=== PATIENT | male | born 1955 | race Caucasian/White ===

== ENCOUNTER 2025-09-17 04:53 | Inpatient (IN) | payer OTHER, SELFPAY ==
--- NOTE | 2025-08-30 12:19 | CM ---
Chart reviewed. Met with the patient in PAT. Reviewed preoperative and postoperative instructions and restrictions, along with showering guidelines. Gave patient 2 soaps. Patient is agreeable to a home visit by CT Transitional RN. Patient
is independent of ADLS, lives with his , daughter and BETTE in a 2 STH, 3 DONNA, 0 DME. Plan is for the patient to return home. CM to follow
[2025-08-30 13:00] LABS: Hematocrit 44.4 % (39.0-52.0); Hemoglobin 15.4 g/dL (13.0-18.0); Mean Corp Hgb Conc. 34.7 g/dL (33.0-37.0); Mean Corpuscular Volume 89.3 fL (80.0-94.0); Nucleated Red Blood Cells % 0 % (-); Platelet Count 246 10^3/uL (130-400); Red Cell Dist. Width 12.4 % (11.5-14.5)
[2025-08-30 13:14] LABS: INR 1.05; PT 14.0 Sec (11.4-14.6)
[2025-08-30 13:20] LABS: Urine Character Clear (Clear)
[2025-08-30 13:35] LABS: ALT (SGPT) 19 U/L (0-50); AST (SGOT) 16 U/L (17-59); Albumin 4.7 g/dl (3.5-5.0); Alkaline Phosphatase 47 U/L (38-126); Blood Urea Nitrogen 15 mg/dl (9-20); Calcium 9.7 mg/dl (8.4-10.2); Carbon Dioxide 27 mmol/L (22-30); Chloride 106 mmol/L (98-107); Estimated Creatinine Clearance 68 ml/min; Glucose 83 mg/dl (70-99); Potassium 4.1 mmol/L (3.5-5.1); Sodium 137 mmol/L (135-145); Total Protein 7.7 g/dl (6.3-8.2); eGFR > 60.00
[2025-08-30 14:15] LABS: Glycohemoglobin (HgbA1c) 5.1 % (4.0-5.9)
[2025-09-17] VITALS (18 sets, daily range): BP systolic 96–162; BP diastolic 64–96; BMI 29.8
[2025-09-17] MEDS: BACTROBAN 2% OINTMENT 1 APPLIC NASAL ×2 (05:20→20:38)
[2025-09-17] MEDS: LOPRESSOR 25 MG PO (05:20)
[2025-09-17] MEDS: PROTONIX 40 MG PO (05:21)
[2025-09-17] MEDS: MAGNESIUM OXIDE 400 MG PO (05:21)
--- NOTE | 2025-09-17 05:38 | PTCARENOTE ---
Pt admitted into 2266. Pt confirmed NPO since midnight and 2 CHG showers completed at home. Admission questions and med rec complete. VS and ABO obtained. Pt clipped and washed with CHG wipes. Pre-op medications given. Awaiting CVOR.
--- NOTE | 2025-09-17 06:25 | W.CVOR.SURPR ---
CVOR Surgeon Immed Pre Op
-
I have examined this patient prior to performance of the scheduled procedure.
The patient's condition is unchanged from the time of the dictated/written History and
Physical and the patient is able to undergo the scheduled procedure.
HP MV repair +/- LAAE
[2025-09-17 07:14] LABS: ACT+ - POC 123 Seconds (82-134)
[2025-09-17 07:54] LABS: Urine Character Clear (Clear)
--- NOTE | 2025-09-17 08:07 | CM ---
Reviewed chart. Mr. Ann is in the operating room today. Prior to admission he resides with his spouse, daughter and son-in-law in a two story home with three steps to enter. Prior to admission he was independent with ambulation and adls. He
does not have any DME in the home. Medical work-up in progress. The discharge plan is to return home with his spouse, daughter and son-in-law and a home visit by the Transitional Care Nurse when medically stable.
[2025-09-17 08:18] LABS: Urine Urothelial Cell 0-2 /LPF (FEW)
[2025-09-17 08:22] LABS: Urine White Cell 0-2 /HPF (0-5)
[2025-09-17 08:48] LABS: ACT+ - POC 495 Seconds (82-134)
[2025-09-17 09:09] LABS: B.E. - POC -2.4 mmol/L; Glucose - POC 97 mg/dl (70-99); HCO3 - POC 23 mmol/L (21-28); Hematocrit - POC 34 % PCV (42-52); Hemodilution- POC No; Hemoglobin Calculated - POC 11.5; Ionized Calcium - POC 1.19 mmol/L (1.15-1.33); Lactate - POC 0.43 mmol/L (0.36-0.75); O2 Saturation %Calculated-POC 99.9 % (94-98); PCO2 - POC 39 mmHg (35-48); PO2 - POC 278 mmHg (83-108); Potassium - POC 3.4 mmol/L (3.5-5.1); Sodium - POC 141 mmol/L (136-145); Specimen Type - POC Arterial; pH - POC 7.37 (7.35-7.45)
[2025-09-17 09:21] LABS: ACT+ - POC 509 Seconds (82-134)
[2025-09-17 09:43] LABS: B.E. - POC -0.8 mmol/L; Glucose - POC 169 mg/dl (70-99); HCO3 - POC 24 mmol/L (21-28); Hematocrit - POC 34 % PCV (42-52); Hemodilution- POC Yes; Hemoglobin Calculated - POC 11.7; Ionized Calcium - POC 0.98 mmol/L (1.15-1.33); Lactate - POC 0.62 mmol/L (0.36-0.75); O2 Saturation %Calculated-POC 99.8 % (94-98); PCO2 - POC 42 mmHg (35-48); PO2 - POC 223 mmHg (83-108); Potassium - POC 4.9 mmol/L (3.5-5.1); Sodium - POC 139 mmol/L (136-145); Specimen Type - POC Arterial; pH - POC 7.38 (7.35-7.45)
[2025-09-17 09:52] LABS: ACT+ - POC 430 Seconds (82-134)
[2025-09-17 10:20] LABS: B.E. - POC 0.5 mmol/L; Glucose - POC 206 mg/dl (70-99); HCO3 - POC 26 mmol/L (21-28); Hematocrit - POC 35 % PCV (42-52); Hemodilution- POC Yes; Hemoglobin Calculated - POC 11.9; Ionized Calcium - POC 1.12 mmol/L (1.15-1.33); Lactate - POC 0.54 mmol/L (0.36-0.75); O2 Saturation %Calculated-POC 100.0 % (94-98); PCO2 - POC 45 mmHg (35-48); PO2 - POC 373 mmHg (83-108); Potassium - POC 4.6 mmol/L (3.5-5.1); Sodium - POC 140 mmol/L (136-145); Specimen Type - POC Arterial; pH - POC 7.37 (7.35-7.45)
[2025-09-17 10:31] LABS: ACT+ - POC 591 Seconds (82-134)
[2025-09-17 11:02] LABS: B.E. - POC -0.4 mmol/L; Glucose - POC 163 mg/dl (70-99); HCO3 - POC 25 mmol/L (21-28); Hematocrit - POC 33 % PCV (42-52); Hemodilution- POC Yes; Hemoglobin Calculated - POC 11.2; Ionized Calcium - POC 1.11 mmol/L (1.15-1.33); Lactate - POC 1.35 mmol/L (0.36-0.75); O2 Saturation %Calculated-POC 99.9 % (94-98); PCO2 - POC 40 mmHg (35-48); PO2 - POC 330 mmHg (83-108); Potassium - POC 3.7 mmol/L (3.5-5.1); Sodium - POC 141 mmol/L (136-145); Specimen Type - POC Arterial; pH - POC 7.40 (7.35-7.45)
[2025-09-17 11:08] LABS: ACT+ - POC 164 Seconds (82-134)
[2025-09-17 11:20] LABS: B.E. - POC -3.6 mmol/L; Glucose - POC 94 mg/dl (70-99); HCO3 - POC 22 mmol/L (21-28); Hematocrit - POC 31 % PCV (42-52); Hemodilution- POC Yes; Hemoglobin Calculated - POC 10.5; Ionized Calcium - POC 1.30 mmol/L (1.15-1.33); Lactate - POC 2.46 mmol/L (0.36-0.75); O2 Saturation %Calculated-POC 95.1 % (94-98); PCO2 - POC 43 mmHg (35-48); PO2 - POC 82 mmHg (83-108); Potassium - POC 3.5 mmol/L (3.5-5.1); Sodium - POC 141 mmol/L (136-145); Specimen Type - POC Arterial; pH - POC 7.32 (7.35-7.45)
[2025-09-17 11:21] LABS: ACT+ - POC 126 Seconds (82-134)
--- NOTE | 2025-09-17 11:30 | W.PN.CT.SURG ---
Addendum entered and electronically signed by Eze Lemus MD 09/18/25 07:06:
Small flail segment of P2 scallop as well, there were a few torn chords at the free margin.
Original Note:
CT Surgery Operative Note
-
CARDIAC SURGERY OPERATIVE REPORT
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
Postoperative Diagnosis: Same, Chen valve morphology
Procedure(s) Performed:
1. Right mini thoracotomy with right femoral artery and vein cannulation under JAMIE guidance
2. Radical complex mitral valve repair (36 mm band annuloplasty, closure of cleft between P2 and P3, CV 4 [place]-Kael cords with 2 placed to the anterior leaflet and to place the posterior leaflet at P2 onto the commissure and P3, commissural plasty at
A3 P3)
3. Placement temporary ventricular pacing wires
4. Trans esophageal echocardiography
5. Left atrial appendage ligation (35mm clip)
6. Patent Foramen [place], Atrial Septal Defect - Closed Primarily
Date of Surgery: 09/17/25
Comorbidities:
1. Myxomatous mitral valve degeneration with severe insufficiency
2. Hypertension
Attending Surgeon: Eze Lemus MD, MS
Assistants: Maribel Mcdaniels PA-C (present and necessary for retraction, suctioning, exposure, suture management, wound closure, etc. under my direction), Sharri Robertson MD, MPH (did portions of mitral exposure), Estela Julien MD (Cardiac Surgery Resident)
Anesthesiology: Leighton Kang MD and Levi Goyal CRNA
Scrub and Circulating RNs: Isabel Bunn, RN, Indigo Garcia, STEPH
Stucco Applicator: Edmund Dominguez CCP
Anesthesia: GETA
EBL: per perfusion records
Products: None
CPB Time: 126 minutes
Aortic Cross Clamp Time: 99 minutes
Indication(s) for Procedures: This is a 70-year-old male was referred for consideration of mitral valve repair. He has worsening/progression of his mitral valve insufficiency on serial echocardiograms. He met a 2A indication for surgical repair in
my hands. He was offer ligation of his left atrial appendage as well as closure of his PFO at time of surgery..
Mitral Valve Description: Thickening of both the anterior and posterior leaflets, most the pathology was toward the posterior medial aspect of the valve. There was prolapsing of both the A2, P2, P3 and the commissure on the medial side of the
mitral valve. There is some evidence of mitral annular disjunction and asymmetrical dilation of the annulus towards the P2 P3 region.
Implants:
1. 36 mm Barros physio flex band annuloplasty, SN [id number]
2. 35 mm left atrial appendage clip, serial number [id number]
3. 4 times CV 4 [place]-Kael sutures and multiple 5-0 Prolene's
Specimen:
1. none
Findings: His left ventricular ejection fraction preoperatively was 60% with no significant regional wall motion abnormalities. Following surgery his EF remained the same at 60% with no new regional wall motion abnormalities. His mitral valve was
rather complex he had prolapsing of both the anterior leaflet at A2 and A3 as well as prolapsing and a flail segment of P2 and P3 involving the commissure on the medial aspect. The valve was repaired with a 36 mm band annuloplasty, I closed the
cleft between P2 and P3 and remodeled the free margin and then placed 2 sets of [place]-Kael cords to the P2 and the A3 P3 commissure. A commissural plasty was performed with a [id number]-[id number] suture at A3 P3 and then 2 sets of CV 4 [place]-Kael were
placed to the A2 scallop. His left atrial appendage was verified to be free of any thrombus or debris preoperatively and found to be totally occlusive postoperatively. There was a small PFO identified on intraoperative JAMIE which was closed with an
over and over a baseball stitch. At the conclusion of the case, he had no residual mitral valve insufficiency, no systolic anterior motion of the leaflets, and a mean gradient of 1 across the valve. Cardiac index was over 2.5 with no significant
inotropic support. No blood products were given. He regained his [place] sinus rhythm.
Description of Procedure: The patient was brought to the operating room and placed supine in the table with their right side bumped up and right arm down. Arterial and central access was performed by anesthesiology. The patient was prepped from chin
to toes in the typical sterile fashion. Trans esophageal evaluation of cardiac function and all valvular structures was conducted. Before commencing, a time out was performed by all members of the team. All were in agreement with the procedure and
laterality and I proceeded. A small right groin incision was made to expose the common femoral artery and vein. A 5-6 cm right lateral muscle sparing thoracotomy sweeping the pec major muscle cephalad at the serratus anterior was performed over the
4th intercostal space verified by visualization of the hilum. A total of 50,000 units of heparin was given. The common femoral artery and vein were cannulated under transesophageal guidance using open Seldinger technique. The arterial line was
verified to have an appropriate bounce and pressure correlating with testing. Once the ACT was above 400, retrograde autologous priming was done and we commenced cardiopulmonary bypass. Target core temperature was 34�C.
Carbon dioxide was used to flood the field. The course of the phrenic nerve was identified to prevent injury. The pericardium was opened and two stay sutures were placed to facilitate a ``pericardial table.�� The oblique sinus was developed followed
by the inter atrial groove. An antegrade root vent was inserted and secured with a pursestring suture. The pump flow and mean arterial pressure were lowered and an aortic cross clamp was applied to the ascending aorta. A total of 1.2L initial dose
of Antegrade cardioplegia was delivered. We had rapid electro myocardial quiescence at 350 cc of cardioplegia. The ventricle was monitored for distension by echocardiogram during this time. Once the heart was fully arrested I then clipped his left
atrial appendage across the transverse sinus. The left atrium was incised and enlarged. A left atrial lift retractor was placed. The mitral valve was inspected. The mitral valve was repaired as described above. After removal of the left atrial
lift, the PFO was identified and closed with an over an over baseball stitch using 4-0 Prolene. The left atriotomy was closed with 3-0 prolene in a running fashion leaving a ventricular vent in place to de-air. After filling the heart, the vent was
removed and the prolene was secured with a corknot. Unipolar ventricular pacing wire was placed on the base of the right ventricle. The patient was placed into Trendelenburg position and pump flows were lowered. The clamp was slowly removed with
the root vent turned on. De-airing maneuvers were performed. We started to rewarm with a target of 36.5�C.
As the heart recovered, the mitral valve and ventricular function were assessed under transesophageal echocardiogram. The LV vent and root vents were removed. Once weaning parameters were satisfactory, cardiopulmonary bypass flow was lowered until
we were off cardiopulmonary bypass the mitral valve was inspected again. All surgical sites were inspected for hemostasis and appeared appropriate. We briefly resumed cardiopulmonary bypass to remove the root vent and the pericardium was
approximated with 2-0 ethibond sutures secured with corknots. The lines were clamped and the arterial was relocated to the venous cannula to give back volume. A test dose of protamine was delivered and patient was monitored for any adverse reactions
followed by complete protamine dosing. The femoral vessels were decannulated and repaired as indicated. One 19F Charles drain remained in the pleural space and threaded into the pericardium. There was an excellent palpable distal pulse to the DESIGN ASSISTANT
cannulation site. Local analgesia was injected to the thoracotomy. The incision was closed in layers in a running fashion.
All instrument, sponge, and needle counts were confirmed to be correct x 2 at the end of the operation. The patient was transferred to the cardiac intensive care unit in critical but stable condition.
I, Dr. Eze Lemus, was present, scrubbed for, and performed all critical elements of this procedure.
Eze Lemus MD, MS
Cardiothoracic Surgeon
[facility]
This dictation was created using the [employer] dictation system. Please excuse any grammatical, typographical, or 'sound alike' errors
[2025-09-17 11:42] LABS: B.E. - POC -3.8 mmol/L; Glucose - POC 88 mg/dl (70-99); HCO3 - POC 22 mmol/L (21-28); Hematocrit - POC 30 % PCV (42-52); Hemodilution- POC Yes; Hemoglobin Calculated - POC 10.3; Ionized Calcium - POC 1.27 mmol/L (1.15-1.33); Lactate - POC 2.41 mmol/L (0.36-0.75); O2 Saturation %Calculated-POC 95.7 % (94-98); PCO2 - POC 42 mmHg (35-48); PO2 - POC 86 mmHg (83-108); Potassium - POC 3.4 mmol/L (3.5-5.1); Sodium - POC 139 mmol/L (136-145); Specimen Type - POC Arterial; pH - POC 7.32 (7.35-7.45)
--- NOTE | 2025-09-17 12:07 | W.PN.CD ---
Addendum entered and electronically signed by Ace Parkinson MD 09/17/25 15:17:
I saw and evaluated the patient, and I provided the substantive portion of the medical decision making.
I reviewed and agree with the note by CLAUDETTE Sanchez and it accurately reflects our care.
I personally performed the medical decision making of the this encounter and my assessment and plan is below:
70 yo s/p MV repair earlier today.
Intraop JAMIE showed excellent results
Pt extubated and on bipap
EKG and tele are good.
HTN, stable
Original Note:
Today's Communication / Plan
-
Follow telemetry
Postoperative management per CT surgery
Impression / Plan
-
I/P: 70M with hypertension and nonrheumatic mitral valve regurgitation presents today for mitral valve repair
Primary c t tech:
Severe mitral valve insufficiency s/p radical complex mitral valve repair by Dr. Lemus 09/17/2025
- 36 mm band annuloplasty, closure of cleft between P2 and P3, CV 4 [place]-Kael cords with 2 placed to the anterior leaflet and to place the posterior leaflet at P2 onto the commissure and P3, commissural plasty at A3 P3
- Pre and post LVEF 60% without new RWMA
- JAMIE without residual mitral valve insufficiency, no KANE, MG 1 mmHg
- Extubated in OR. No blood products required.
- EKG: Sinus bradycardia with first-degree AV block
- Telemetry: Sinus bradycardia, V wire tested with adequate capture
- Follow telemetry
PFO status postclosure
Hypertension, follow BP throughout recovery
SUBJECTIVE:
Sedated.
Physical Exam
Vital Signs/Labs
Vital Signs
Temp Pulse Resp BP Pulse Ox
98.1 F 73 20 155/95 98
09/17/25 05:14 09/17/25 05:20 09/17/25 05:14 09/17/25 05:20 09/17/25 05:14
09/16/25 09/17/25 09/18/25
06:59 06:59 06:59
Actual Weight 86.1 kg
PT 14.0 Sec (11.4-14.6) 08/30/25 11:36
INR 1.05 08/30/25 11:36
Physical Exam
Constitutional: No acute distress and Comfortable
EENT: Anicteric and Moist mucous membranes
Cardiovascular: Rhythm & rate is regular, Pedal edema is absent and S1S2 is normal
Respiratory: Respiratory effort normal and Lungs clear to auscul.
GI: Soft, Distention absent, Flat, Non tender and Normal bowel sounds
Neuro/Psych: Other (sedated)
Other: Skin (Warm and dry without edema)
Data Reviewed
-
Date of Service: September 17, 2025
[2025-09-17 12:14] LABS: Glucose - Point of Care 89 mg/dl (70-99)
[2025-09-17 12:23] LABS: B.E. -4.6 mmol/L; HCO3 22.9 mmol/L (21-28); O2 Saturation % 97.3 % (94-98); PCO2 51 mmHg (35-48); PO2 88 mmHg (83-108); Potassium 3.9 mMOL/L (3.5-5.1); Sodium 138 mMOL/L (136-145)
[2025-09-17] MEDS: NSS 500 IV (12:31)
[2025-09-17] MEDS: LR 250 ML IV ×3 (12:31→15:16)
[2025-09-17] MEDS: ANCEF 10 IV ×2 (12:31)
[2025-09-17] MEDS: KCL 50 IV (12:32)
[2025-09-17 12:33] LABS: Hematocrit 38.0 % (39.0-52.0); Hemoglobin 12.4 g/dL (13.0-18.0); Platelet Count 171 10^3/uL (130-400)
[2025-09-17 12:36] LABS: INR 1.48; PT 18.2 Sec (11.4-14.6)
[2025-09-17 12:37] LABS: APTT 28.8 Sec (23.4-35.0)
[2025-09-17 12:39] LABS: Blood Urea Nitrogen 17 mg/dl (9-20); Estimated Creatinine Clearance 81 ml/min; Glucose 91 mg/dl (70-99); Magnesium 2.5 mg/dl (1.6-2.3)
--- NOTE | 2025-09-17 12:45 | CON.INTV ---
Consultation
Consultation Request
Date/Time Consultation Requested: 09/17/2025 - 1108
Date/Time Consultation Performed: 09/17/2025 - 1126
Requesting Provider: CLAUDETTE Salgado
Performing Provider: Dr. Rodriguez
Reason for Consultation: s/p mitral valve repair
Medical History
-
Chief Complaint: Elective mitral valve repair
History of Present Illness:
70-year-old male with a past medical history of severe mitral valve insufficiency and hypertension who presents for elective mitral valve repair. Patient known to the cardiothoracic surgery service with last visit on 08/26/[address] Lemus.
Patient has known severe mitral valve insufficiency with an eccentric jet that is directed posteriorly and wraps around the left atrial wall. He has a cough that comes on with laughing at that the patient attributes to his blood pressure
medications. He remains active with swimming and walking. 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 Given
the patient's pathology which is repairable, patient was recommended for cardiothoracic intervention. Today, patient underwent right minithoracotomy with radical complex mitral valve repair, as well as a primary closure of a PFO/ASD and left atrial
appendage ligation with a 35 mm clip. Patient tolerated the procedure well and was extubated in the CVOR. Patient then transferred to the CVICU for further care and Powertrain Engineer services consulted for additional management/recommendations.
When I saw the patient, he was resting in bed in no acute distress, with heart rate 62, BP via A-line: 98/57, and PAP 27/16. CO/CI: 3.49/1.76, respectively, with BP via NIBP: 105/72 and SpO2 96%. Currently on Levophed at 1 mcg/min and insulin drip
at 2.3 units/hr.
PMHx: Hypertension, mitral valve regurgitation
PSHx: Cardiac cath
Past Medical History
Past Medical History: Other (Above as per HPI)
Past Surgical History: Other (Above as per HPI)
Social History
Tobacco: Non-smoker
Alcohol: Occasional
Drug: None
Employment: Retired
Family History
Family History: Reviewed & Not Pertinent
Allergies / Home Medications
Allergies
Allergy/AdvReac Type Severity Reaction Status Date / Time
No Known Allergies Allergy Unverified 08/29/25 13:12
Home Medications
�Medication �Instructions �Recorded �Confirmed �Last Taken �Type
amlodipine 5 mg tablet 5 mg PO DAILY Blood Pressure 08/29/25 09/17/25 09/13/25 08:00 History
Review of Systems
-
History Source: Patient
All other systems: Negative unless noted
Vitals / Labs / Diagnostic Testing
Vital Signs
Temp Pulse Resp BP Pulse Ox
96.1 F L 60 13 102/75 100
09/17/25 12:10 09/17/25 12:15 09/17/25 12:15 09/17/25 12:15 09/17/25 12:15
Lab Data
09/17/25 12:10
Laboratory Results
09/17/25
12:10
PT 18.2 H
INR 1.48
APTT 28.8
pH 7.26 L
pCO2 51 H
pO2 88
HCO3 22.9
O2 Delivery Level
Diagnostic Testing:
Physical Exam
-
HEENT: Normocephalic and Anicteric
Cardiovascular: S1/S2 and Peripheral Edema (n)
Respiratory: Wheeze (n), Rales (n), Rhonchi (n), Non-Labored Respirations and Other (Right pleural chest tube x 1)
GI: Soft, Non Distended, Non Tender and Normal Bowel Sounds
Neurology: Tremors (n) and Other (Sleepy but easily arousable to voice)
Skin: Warm and Dry
General: Respiratory Distress (n), Comfortable, Fever (n) and Chills (n)
Assessment
-
Assessment: 70-year-old male with a past medical history of severe mitral valve insufficiency and hypertension who presents for elective mitral valve repair. Patient known to the cardiothoracic surgery service with last visit on 08/26/[address] Lemus. Patient has known severe mitral valve insufficiency with an eccentric jet that is directed posteriorly and wraps around the left atrial wall. He has a cough that comes on with laughing at that the patient attributes to his blood pressure
medications. He remains active with swimming and walking. 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 Given
the patient's pathology which is repairable, patient was recommended for cardiothoracic intervention. Today, patient underwent right minithoracotomy with radical complex mitral valve repair, as well as a primary closure of a PFO/ASD and left atrial
appendage ligation with a 35 mm clip. Patient tolerated the procedure well and was extubated in the CVOR. Patient then transferred to the CVICU for further care and Powertrain Engineer services consulted for additional management/recommendations.
Chronic conditions NATUROPATHIC PHYSICIAN: Hypertension, mitral valve regurgitation
Impression:
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
#PFO/ASD (seen on intraoperative JAMIE with a small [id number]-bp-rbnbz shunt) s/p close primarily + left atrial appendage ligation with 35mm clip � POD #0
#Acute anemia
#Hypertension
Plan:
Patient was already extubated in the CVOR, and is currently breathing comfortably on 6 L/min saturating 96%
Continue to wean down supplemental O2 flow rate while maintaining SpO2 >90-94%
prn nebulized bronchodilators - not currently bronchospastic
Encourage incentive spirometer use q1hr while awake
Pulmonary artery catheter parameters will be followed
Pressors/antihypertensive/inotropes/diuretics will be provided as needed
Maintain MAP>65
Replete electrolytes with K>4, Mg>2
Monitor chest tube output (right pleural chest tube x 1)
Monitor hemoglobin
Monitor platelet count and coags
Transfuse blood products as needed to maintain Hb>7g/dL, plt>50k (given post-operative status)
CT surgery managing chest tube
Monitor blood sugar to maintain euglycemia with goal BG 110-140
Insulin drip per protocol
Aspiration precautions
DVT prophylaxis
Early nutrition
Early mobilization
(Patient was seen and evaluated on 09/17/2025) Critical care statement: A total of 37 minutes of critical care time was provided for this patient today. This includes management of ventilator, spontaneous breathing trial, arterial blood gases,
pressors, of unstable vital signs, evaluation of the patient at bedside, reviewing the patient's pertinent medical records including radiographs, microbiology, laboratory evaluations, and discussion with primary team and critical care nursing.
Data:
Intraoperative JAMIE 09/17/2025:
Normal left ventricular systolic function with LV EF of 60-65% by visual
inspection. No regional wall motion abnormalities seen.
Normal right ventricular systolic function.
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 Severe mitral
regurgitation.
Mild aortic insufficiency.
Dilated tricuspid annulus with normal function.
A small paye-sw-jznna patent foramen ovale is seen.
Normal left atrial appendage.
Normal size aortic root and thoracic aorta. Grade III atheromatous disease is
seen in the arch and thoracic descending aorta.
Dilated left atrium.
--- NOTE | 2025-09-17 13:00 | PTCARENOTE ---
pt received from CVOR @~1210, core temp 96.0F, bear hugger applied as ordered. SB w/ 1st degree AVB on the monitor, HR 50s. V wires in place, VVI 40/10. PAP 20-30s/10, CVP ~9, CI>2. SBP 80-100s, Levophed gtt titrated as ordered. palpable pulses. pt
on 6L SM, 95% POX. lungs clear anteriorly. CTx1, no air leak or crepitus noted. pt abdomen s/n, hypoactive BS. Hicks in place, clear yellow urine. R lateral chest incision VERIFYING MACHINE OPERATOR, approximated. chest tube site c/d/i. R groin incision VERIFYING MACHINE OPERATOR, approximated.
RIJ cordis/swan maintained. L radial Binta flushed, zeroed, and calibrated. PIV. insulin gtt running as ordered. lab work drawn, EKG performed, CXR completed. GROOMING SALON MANAGER aware of ABG results, pt placed on BiPAP 15 6L @1241 per GROOMING SALON MANAGER orders. K repleted. see
worklist for VS, I&O, and assessment.
[2025-09-17 13:02] LABS: Glucose - Point of Care 128 mg/dl (70-99)
[2025-09-17] MEDS: TYLENOL PO (13:16)
[2025-09-17 13:22] LABS: B.E. -2.4 mmol/L; HCO3 23.2 mmol/L (21-28); O2 Saturation % 97.0 % (94-98); PCO2 42 mmHg (35-48); PO2 80 mmHg (83-108)
[2025-09-17 14:02] LABS: Glucose - Point of Care 146 mg/dl (70-99)
--- NOTE | 2025-09-17 14:34 | PTCARENOTE ---
pt awakens to voice, nods head appropriately, shakes head no to pain, DENTON, follows commands. sleeping between care.
[2025-09-17 14:59] LABS: Glucose - Point of Care 116 mg/dl (70-99)
[2025-09-17 15:36] LABS: B.E. -1.1 mmol/L; HCO3 23.5 mmol/L (21-28); Hematocrit 35.9 % (39.0-52.0); Hemoglobin 12.3 g/dL (13.0-18.0); O2 Saturation % 98.7 % (94-98); PCO2 38 mmHg (35-48); PO2 95 mmHg (83-108); Platelet Count 159 10^3/uL (130-400); Potassium 4.5 mMOL/L (3.5-5.1)
--- NOTE | 2025-09-17 15:48 | PN.CDI ---
CDI
- -
CDI:
Physician Documentation Request
Admit Date: 09/17/25 04:[address] Surgery,
Clinical Indicators:
Patient admitted Myxomatous mitral valve degeneration with severe insufficiency
09/17 Operative Report, 'His mitral valve was rather complex he had prolapsing of both the anterior leaflet at A2 and A3 as well as prolapsing and a flail segment of P2 and P3 involving the commissure on the medial aspect...2 sets of [place]-Kael cords
to the P2 and the A3 P3 commissure'
Based on the above, could you clarify in the progress notes, the appropriate diagnosis, if significant, that supports the above abnormalities and additional evaluation, monitoring and/or treatment rendered:
Ruptured chordae tendineae
Flail segment only
Other, please specify
Use of terms such as suspected, likely, concern for, or probable are acceptable for a diagnosis that is being evaluated, monitored or treated as if it exists and can be coded in the inpatient setting, when documented at the time of discharge.
Thank you,
EMILY Leyva RN
CDI Specialist
available via tiger text
Please use your independent medical judgment in providing your response.
[2025-09-17] MEDS: PACERONE PO (16:00)
[2025-09-17] MEDS: NEURONTIN PO (16:01)
[2025-09-17] MEDS: CALCIUM GLUCONATE 100 IV (16:01)
--- NOTE | 2025-09-17 16:07 | W.PN.UPDATE ---
Update Note
Progress Note Update
CDI query:
Ruptured chordae tendineae
[2025-09-17 16:09] LABS: Glucose - Point of Care 104 mg/dl (70-99)
--- NOTE | 2025-09-17 16:20 | PTCARENOTE ---
pt VSS, FOREIGN LANGUAGE INTERPRETER aware of ABG results, placed on 6LNC, tolerating well. oriented x4.
[2025-09-17 17:58] LABS: Glucose - Point of Care 128 mg/dl (70-99)
[2025-09-17] MEDS: TORADOL 15 MG IV (18:14)
--- NOTE | 2025-09-17 18:17 | PTCARENOTE ---
pt c/o 'L sided heart pain', ST elevations noted on monitor, ALCOHOLISM WORKER aware. EKG performed, ALCOHOLISM WORKER aware of results. IVP Toradol given as ordered.
--- NOTE | 2025-09-17 20:00 | PTCARENOTE ---
assumed care of pt from previous RN. pt drowsy, oriented x4. bedrest s/p CVOR. R IJ cordis w/ swan floated to 45cm. L radial a-line. all lines leveled, zeroed, flushed. SR w/ 1st degree AVB on tele-monitor. temp epicardial v-wires unplugged from
generator. back up settings VVI 40/10. POX 96-97% on [address] x1 (R pleural) to -20cm wall suction, draining sanguineous drainage. abd s/n, hypoactive BS. tolerating ice chips and sips of water. ling catheter draining clear, yellow colored urine.
all surgical sites stable, CDI. PIV intact. see worklist for complete nursing assessment, interventions, VS, and I&Os.
[2025-09-17] MEDS: ANCEF 5 IV (20:07)
[2025-09-17 20:14] LABS: Glucose - Point of Care 102 mg/dl (70-99)
[2025-09-17] MEDS: CALCIUM GLUCONATE 130 MG IV (20:38)
[2025-09-17] MEDS: SENOKOT PO (20:39)
[2025-09-17 22:02] LABS: Glucose - Point of Care 91 mg/dl (70-99)
[2025-09-17] MEDS: NEURONTIN 100 MG PO (23:17)
[2025-09-17] MEDS: TYLENOL 975 MG PO (23:17)
[2025-09-18] VITALS (41 sets, daily range): BP systolic 58–127; BP diastolic 40–82; PULSE 65–75; O2SAT 97–98; BMI 30.9
--- NOTE | 2025-09-18 | PTCARENOTE ---
assessment remains unchanged. VSS. CT drainage WNL. no c/o pain at this time.
[2025-09-18 00:13] LABS: Glucose - Point of Care 116 mg/dl (70-99)
[2025-09-18 01:55] LABS: Glucose - Point of Care 107 mg/dl (70-99)
[2025-09-18 03:17] LABS: Hematocrit 33.8 % (39.0-52.0); Hemoglobin 11.9 g/dL (13.0-18.0); Mean Corp Hgb Conc. 35.2 g/dL (33.0-37.0); Mean Corpuscular Volume 89.7 fL (80.0-94.0); Platelet Count 160 10^3/uL (130-400); Red Cell Dist. Width 13.0 % (11.5-14.5)
--- NOTE | 2025-09-18 03:29 | W.PN.CT ---
Today's Communication / Plan
-
Plan:
-No major issues overnight. Hemodynamically and neurologically intact
-Pt successfully extubated in OR
-Weaned off Levophed overnight. Remains on insulin gtt per protocol
-Last CI 2.77, MVO2 72.2%, u/o since OR 700mL
-Currently in NSR
-On Toradol and Colchicine for suspected postop acute pericarditis
-Cont. current meds (ASA, Lopressor, Amiodarone)
-Monitor chest tube output: R pleural 215/280. CXR looks clear to my eyes. F/U official report
-D/C'd [place]/A-line this AM @ 0430
-Will d/c ling catheter @ 0600
-Will d/c insulin gtt today per protocol
-Will maintain temporary PW (likely pull tomorrow)
-Encourage use of IS
-Wean off of O2
-OOB into chair/Ambulate
-Will repeat echo to re-assess MV repair in 1-2 days
Assessment / Plan
-
Assessment:
-S/P Right mini thoracotomy/Radical complex mitral valve repair (36 mm band annuloplasty, closure of cleft between P2 and P3, CV 4 [place]-Kael cords with 2 placed to the anterior leaflet and to place the posterior leaflet at P2 onto the commissure and
P3, commissural plasty at A3 P3)/Patent Foramen Ovale, Atrial Septal Defect - Closed Primarily, by Dr. Lemus/Marcelo, 09/17/25, pod#1
-Myxomatous mitral valve degeneration with severe insufficiency
-LVEF 60-65%, per intraop JAMIE
-Small Left to Right PFO
-Dilated left atrium
-Hypertension
-Class 1 obesity (BMI 30)
-S/P Left heart cath 07/30/25
-Acute postop blood loss/Anemia (stable without transfusion)
-Acute postop atelectasis
-Acute postop hypovolemia with subsequent hypervolemia
-Acute postop fever, likely from atelectasis/pericarditis
-Suspected acute postop pericarditis per EKG
Discussed patient care with: Cardiology, Nursing, Respiratory Therapy, Pharmacy and Care Team
Subjective
Procedure
-S/P Right mini thoracotomy/Radical complex mitral valve repair (36 mm band annuloplasty, closure of cleft between P2 and P3, CV 4 [place]-Kael cords with 2 placed to the anterior leaflet and to place the posterior leaflet at P2 onto the commissure and
P3, commissural plasty at A3 P3)/Patent Foramen Ovale, Atrial Septal Defect - Closed Primarily, by Dr. Lemus/Marcelo, 09/17/25
-
Date of Service: September 18, 2025
Pt c/o incisional pain, otherwise feels well
Objective Data
-
Lab Results
09/18/25 03:08
PT 18.2 Sec (11.4-14.6) H 09/17/25 12:10
INR 1.48 09/17/25 12:10
APTT 28.8 Sec (23.4-35.0) 09/17/25 12:10
Vital Signs
Vital Signs
Temp Pulse Resp BP Pulse Ox
100.6 F H 79 37 118/72 95
09/18/25 03:00 09/18/25 02:00 09/18/25 02:00 09/18/25 02:00 09/18/25 03:00
CT Intake/Output/Weight
09/17/25 09/17/25 09/18/25
06:59 18:59 06:59
Intake Total 1302.9 / 1729.3 426.4 / 1729.3
Output Total 425 / 920 495 / 920
Balance 877.9 / 809.3 -68.6 / 809.3
SaO2: 95 (2L)
Physical Exam
-
General: Awake, Oriented and AOx3
Cardiovascular: Regular rate & rhythm, No Murmurs, Rub (slight rub) and No Gallop
Respiratory: Decreased Breath Sounds (at bases, otherwise clear )
Sternum: Stable
Incision: Clean, Dry, Intact and Dressing Intact
Extremities: Other (+trace edema)
Data Reviewed
-
Lab Results: Results Reviewed
Medications: Active Meds Reviewed
Chest X-Ray: Report Reviewed and Image Reviewed
ECG: Report Reviewed and Image Reviewed
--- NOTE | 2025-09-18 03:30 | PTCARENOTE ---
pt febrile, t-max 100.[address] PA aware. IS, deep breathing, and coughing encouraged. AM labs collected and sent. EKG completed.
[2025-09-18] MEDS: ANCEF 5 IV ×2 (03:35→11:48)
[2025-09-18] MEDS: TORADOL 15 MG IV (03:35)
[2025-09-18 03:52] LABS: Blood Urea Nitrogen 20 mg/dl (9-20); Calcium 9.1 mg/dl (8.4-10.2); Carbon Dioxide 23 mmol/L (22-30); Chloride 109 mmol/L (98-107); Estimated Creatinine Clearance 73 ml/min; Glucose 120 mg/dl (70-99); Magnesium 1.9 mg/dl (1.6-2.3); Potassium 4.0 mmol/L (3.5-5.1); Sodium 138 mmol/L (135-145); eGFR > 60.00
[2025-09-18 04:07] LABS: Glucose - Point of Care 132 mg/dl (70-99)
[2025-09-18 05:52] LABS: Glucose - Point of Care 108 mg/dl (70-99)
[2025-09-18] MEDS: TYLENOL 975 MG PO ×3 (05:53→21:16)
--- NOTE | 2025-09-18 07:14 | W.PN.ANS.POP ---
Anesthesia Post Operative
- Anesthesia Post Op Note
Vital Signs Stable-See Nursing Note: Yes
Airway Patent: Yes
Adequate Pain Control: Yes
Change in Mental Status: No
Current Postoperative Nausea & Vomiting: No
Anesthesia Complications: No
General Anesthetic Recall: No
Unplanned Admission: No
Post Op Hydration Adequate: Yes
--- NOTE | 2025-09-18 07:30 | PTCARENOTE ---
Patient received from laundry attendant resting oob in chair, AAO x 3, states pain controlled. NSR via cm, SaO2 @ 96% on 2lnc. RIJ Cordis w/kvo infusing. Epicardial V-wire to pacer, insulated. R pleural chest tube to -20cm suction, no air leaks noted. All
procedural sites stable. Insulin infusing peripherally, titrating per glycemic protocol. Patient updated to plan of care for the day, in agreement. See work list for full assessment and interventions performed.
[2025-09-18 07:55] LABS: Glucose - Point of Care 106 mg/dl (70-99)
[2025-09-18] MEDS: LOPRESSOR 12.5 MG PO (08:25)
[2025-09-18] MEDS: LASIX 40 MG IV (08:25)
[2025-09-18] MEDS: SENOKOT 8.6 MG PO ×2 (08:26→21:16)
[2025-09-18] MEDS: KCL 40 MEQ PO (08:26)
[2025-09-18] MEDS: LOW STRENGTH ASPIRIN 81 MG PO (08:26)
[2025-09-18] MEDS: PROTONIX 40 MG PO (08:26)
[2025-09-18] MEDS: PACERONE 200 MG PO ×3 (08:26→21:16)
[2025-09-18] MEDS: NEURONTIN 100 MG PO ×3 (08:26→21:16)
[2025-09-18] MEDS: COLCHICINE 0.3 MG PO (08:26)
[2025-09-18] MEDS: MAGNESIUM OXIDE 400 MG PO ×2 (08:26→21:16)
[2025-09-18] MEDS: BACTROBAN 2% OINTMENT 1 APPLIC NASAL ×2 (08:27→21:15)
--- NOTE | 2025-09-18 08:28 | W.PN.INTV ---
Today's Communication / Plan
Recommendations
Encourage incentive spirometer
Postoperative management as per CT surgery
Pain control
Up OOB as tolerated
Cardiac rehab consult
Maintain BG goal at 110�140
Patient to be transferred to CVICU�telemetry status. No additional recommendations at this time. Counter Roller/Pulmonary service will now sign off. Please reconsult if there are any additional questions/concerns, or if patient's respiratory status
deteriorates.
Assessment
-
Assessment: 70-year-old male with a past medical history of severe mitral valve insufficiency and hypertension who presents for elective mitral valve repair. Patient known to the cardiothoracic surgery service with last visit on 08/26/[address] Lemus. Patient has known severe mitral valve insufficiency with an eccentric jet that is directed posteriorly and wraps around the left atrial wall. He has a cough that comes on with laughing at that the patient attributes to his blood pressure
medications. He remains active with swimming and walking. 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 Given
the patient's pathology which is repairable, patient was recommended for cardiothoracic intervention. Today, patient underwent right minithoracotomy with radical complex mitral valve repair, as well as a primary closure of a PFO/ASD and left atrial
appendage ligation with a 35 mm clip. Patient tolerated the procedure well and was extubated in the CVOR. Patient then transferred to the CVICU for further care and Counter Roller services consulted for additional management/recommendations.
Chronic conditions BAGGAGEMAN: Hypertension, mitral valve regurgitation
Impression:
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
#PFO/ASD (seen on intraoperative JAMIE with a small [id number] shunt) s/p close primarily + left atrial appendage ligation with 35mm clip � POD #1
#Acute anemia
#Hypertension
Plan:
Patient was extubated in the CVOR on 09/17, and is currently breathing comfortably on room air saturating 96%
Maintain SpO2 >90-94%
prn nebulized bronchodilators - not currently bronchospastic
Encourage incentive spirometer use q1hr while awake
PAC removed
Pressors/antihypertensive/inotropes/diuretics will be provided as needed
Maintain MAP>65
Replete electrolytes with K>4, Mg>2
Monitor chest tube output (right pleural chest tube x 1)
Monitor hemoglobin
Monitor platelet count and coags
Transfuse blood products as needed to maintain Hb>7g/dL, plt>50k (given post-operative status)
CT surgery managing chest tube
Monitor blood sugar to maintain euglycemia with goal BG 110-140
Insulin drip now off; recommend ISS to keep BG at goal as above
Aspiration precautions
DVT prophylaxis
Early nutrition
Early mobilization
Patient to be transferred to CVICU�telemetry status. No additional recommendations at this time. Counter Roller/Pulmonary service will now sign off. Thank you for allowing us to be involved in the care of this patient. Please reconsult if there are
any additional questions/concerns, or if patient's respiratory status deteriorates.
Data:
Intraoperative JAMIE 09/17/2025:
Normal left ventricular systolic function with LV EF of 60-65% by visual
inspection. No regional wall motion abnormalities seen.
Normal right ventricular systolic function.
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 Severe mitral
regurgitation.
Mild aortic insufficiency.
Dilated tricuspid annulus with normal function.
A small [id number] patent foramen ovale is seen.
Normal left atrial appendage.
Normal size aortic root and thoracic aorta. Grade III atheromatous disease is
seen in the arch and thoracic descending aorta.
Dilated left atrium.
Total time spent today was 58 minutes for this encounter. Time includes reviewing laboratory test/imaging results, reviewing pertinent medical records, obtaining and reviewing medical history, performing an appropriate exam, ordering medications,
tests and procedures. Time also includes documentation of this encounter, coordinating patient care and communicating with other healthcare professionals. Total time does not include separately billed tests performed on this date of service.
Subjective Dataa
Subjective Data
Date of Service:
Date of Service: September 18, 2025
Chief Complaint: Counter Roller Follow Up
Subjective:
Patient seen and evaluated this morning.� Currently on room air breathing comfortably.� Heart rate 72, BP 92/87 and on room air breathing comfortably, saturating 96%.� Patient's , Lucy, present at bedside and all questions were answered.
Review of Systems
General: Other (Negative unless mentioned above)
Objective Data
Data Reviewed
Vital Signs / I&O / Oxygen:
Vital Signs
Temp Pulse Resp BP Pulse Ox
99.5 F 72 18 95/63 94
09/18/25 15:35 09/18/25 16:07 09/18/25 15:35 09/18/25 16:07 09/18/25 15:35
Intake and Output
09/17/25 09/18/25 09/19/25
06:59 06:59 06:59
Intake Total 1766.5 / 1778.5 1422.9 / 1422.9
Output Total 1045 / 1045 390 / 390
Balance 721.5 / 733.5 1032.9 / 1032.9
SaO2 94
Nasal Cannula flow liters per 1
minute
Physical Exam
General: Respiratory Distress (negative), Comfortable, Chills (negative) and Sweats (negative)
HEENT: Normocephalic, Anicteric and Other (R-IJ cordis in place)
Cardiovascular: S1-S2 and Peripheral Edema (negative)
Respiratory: Wheeze (negative), Crackles (Faint bibasilar rales), Rhonchi (negative), Non-Labored Respirations and Chest Tube (Right-sided pleural chest tube x 1)
GI: Soft, Distended (Abdominal obesity), Non Tender and Normal Bowel Sounds
Neurology: Awake, Alert, Oriented and Tremors (negative)
Skin: Warm, Dry, Cyanosis (negative) and Jaundice (negative)
Labs/Micro/Reports
Lab Data
09/18/25 10:22
09/18/25 03:08
[2025-09-18 10:00] LABS: Glucose - Point of Care 118 mg/dl (70-99)
[2025-09-18] MEDS: LR 250 ML IV (10:23)
[2025-09-18] MEDS: LEVOPHED 250 IV (10:25)
--- NOTE | 2025-09-18 10:32 | W.PN.CD ---
Addendum entered and electronically signed by Brandon Ro MD 09/18/25 14:45:
I reviewed and agree with the note by CLAUDETTE and it accurately reflects our care.
I saw and evaluated the patient, and I provided the substantive portion of the medical decision making. My assessment and plan is below:
70M with hypertension and nonrheumatic mitral valve regurgitation s/p mitral valve repair. He had asymptomatic hypotension this morning and is receiving IV fluids.
Physical exam: RRR, no murmurs, rubs, or gallops; no lower extremity edema, clear lungs
Creatinine 1.0 hemoglobin 11.6
Keep an eye on blood pressures. May have just been hypotensive in the setting of receiving Lasix and metoprolol. Trend BP with IV fluid repletion.
Continue colchicine for possible pericarditis based on ECG changes.
Original Note:
Today's Communication / Plan
-
Monitor BP closely (getting IVF this AM for asymptomatic hypotension following Lasix and metoprolol)
Follow telemetry
On colchicine for evidence of pericarditis noted on EKG- continue and monitor
Impression / Plan
-
I/P: 70M with hypertension and nonrheumatic mitral valve regurgitation is s/p mitral valve repair.
Severe mitral valve insufficiency s/p radical complex mitral valve repair by Dr. Lemus 09/17/2025
-36 mm band annuloplasty, closure of cleft between P2 and P3, CV 4 [place]-Kael cords with 2 placed to the anterior leaflet and to place the posterior leaflet at P2 onto the commissure and P3, commissural plasty at A3 P3
-Pre and post LVEF 60% without new RWMA
-JAMIE without residual mitral valve insufficiency, no KANE, MG 1 mmHg
-SR on monitor
-EKG and telemetry with diffuse ST elevations suggestive of pericarditis. He is now on colchicine and Toradol. He has no CP.
Hypertension:
-actually hypotensive this morning after Lasix and metoprolol (no symptoms), so getting IVF- monitor closely.
PFO status postclosure
SUBJECTIVE:
Feels and looks well and denies any CP.
Currently in bed, but per nursing was OOB to chair this AM without issue.
Physical Exam
Vital Signs/Labs
Vital Signs
Temp Pulse Resp BP Pulse Ox
98.8 F 68 16 104/75 98
09/18/25 08:00 09/18/25 09:00 09/18/25 09:00 09/18/25 09:00 09/18/25 09:00
09/17/25 09/18/25 09/19/25
06:59 06:59 06:59
Actual Weight 86.1 kg 89.3 kg
09/18/25 03:08
PT 18.2 Sec (11.4-14.6) H 09/17/25 12:10
INR 1.48 09/17/25 12:10
APTT 28.8 Sec (23.4-35.0) 09/17/25 12:10
Magnesium 1.9 mg/dl (1.6-2.3) 09/18/25 03:08
Physical Exam
Constitutional: No acute distress
EENT: Anicteric
Cardiovascular: Rhythm & rate is regular
Respiratory: Respiratory effort normal and Lungs clear to auscul.
Neuro/Psych: Alert and Oriented
Other: Skin (right incision site with JOANA drain)
Data Reviewed
-
Date of Service: September 18, 2025
EKG: Tracing Personally Visualized and interpreted (NSR with diffuse ST elevatations) and Other (SR on tele)
Labs: Labs Reviewed by me
[2025-09-18 10:36] LABS: Hematocrit 34.6 % (39.0-52.0); Hemoglobin 11.6 g/dL (13.0-18.0); Mean Corp Hgb Conc. 33.5 g/dL (33.0-37.0); Mean Corpuscular Volume 94.3 fL (80.0-94.0); Platelet Count 167 10^3/uL (130-400); Red Cell Dist. Width 13.2 % (11.5-14.5)
[2025-09-18] MEDS: NSS 500 IV (11:48)
--- NOTE | 2025-09-18 12:09 | CM ---
Reviewed chart. Met with and Mrs. Arauz to review discharge plans. He states prior to admission he resides with his spouse, daughter and son in-law in a two story home with three steps to enter. He states he has to go up a full flight of
steps to get to bedroom/full bathroom. He states he does not have any DME in the home. He states he has a prescription plan and uses [facility]. Medical work-up in progress. The discharge plan is to return home with his spouse, daughter and
son-in-law with a home visit by the Transitional Care Nurse when medically stable.
--- NOTE | 2025-09-18 12:10 | PTCARENOTE ---
VS obtained, assessment stable. Patient resting comfortably, denies dizziness. States pain controlled. Family at bedside.
[2025-09-18 12:11] LABS: Glucose - Point of Care 108 mg/dl (70-99)
[2025-09-18] MEDS: ALBUMIN 5% 250 IV (13:02)
[2025-09-18] MEDS: FERRLECIT 110 MG IV (14:02)
--- NOTE | 2025-09-18 15:36 | PTCARENOTE ---
Patient reassessed, remains oob in chair, at bedside. NSR via cm, SaO2 @ 94% on RA. Denies pain, dizziness. I.S. encouraged.
--- NOTE | 2025-09-18 20:00 | PTCARENOTE ---
assumed care of pt from previous RN. pt A&Ox4, resting in chair at time of assessment. SR on tele-monitor. temp epicardial v-wires insulated. back up settings VVI 40/10. POX 93% on RA. CT x1 (R pleural) to -20cm wall suction, draining sanguineous
drainage. abd s/n, +BS. all surgical sites stable, CDI. R IJ cordis w/ KVO. PIV intact. see worklist for complete nursing assessment, interventions, VS, and I&Os.
[2025-09-18] MEDS: REMOVE LIDOCAINE PATCH REMOVE (21:16)
[2025-09-19] VITALS (17 sets, daily range): BP systolic 93–147; BP diastolic 55–84; PULSE 71–76; O2SAT 95–98; BMI 31.2
--- NOTE | 2025-09-19 | PTCARENOTE ---
assessment remains unchanged. VSS.
--- NOTE | 2025-09-19 03:45 | PTCARENOTE ---
no acute changes. VSS.
[2025-09-19 04:13] LABS: Hematocrit 31.9 % (39.0-52.0); Hemoglobin 10.5 g/dL (13.0-18.0); Mean Corp Hgb Conc. 32.9 g/dL (33.0-37.0); Mean Corpuscular Volume 93.8 fL (80.0-94.0); Platelet Count 134 10^3/uL (130-400); Red Cell Dist. Width 13.5 % (11.5-14.5)
[2025-09-19 04:23] LABS: Blood Urea Nitrogen 31 mg/dl (9-20); Calcium 8.6 mg/dl (8.4-10.2); Carbon Dioxide 27 mmol/L (22-30); Chloride 109 mmol/L (98-107); Estimated Creatinine Clearance 74 ml/min; Glucose 123 mg/dl (70-99); Magnesium 2.3 mg/dl (1.6-2.3); Potassium 4.1 mmol/L (3.5-5.1); Sodium 136 mmol/L (135-145); eGFR > 60.00
[2025-09-19] MEDS: TYLENOL 975 MG PO ×3 (05:50→22:54)
[2025-09-19] MEDS: NEURONTIN 100 MG PO ×3 (07:51→22:54)
[2025-09-19] MEDS: COLCHICINE 0.3 MG PO (07:51)
[2025-09-19] MEDS: SENOKOT 8.6 MG PO (07:51)
[2025-09-19] MEDS: LOW STRENGTH ASPIRIN 81 MG PO (07:51)
[2025-09-19] MEDS: MAGNESIUM OXIDE 400 MG PO ×2 (07:51→20:16)
[2025-09-19] MEDS: PROTONIX 40 MG PO (07:51)
[2025-09-19] MEDS: PACERONE 200 MG PO ×3 (07:51→23:25)
[2025-09-19] MEDS: BACTROBAN 2% OINTMENT 1 APPLIC NASAL ×2 (07:52→20:16)
--- NOTE | 2025-09-19 07:57 | W.PN.CT ---
Today's Communication / Plan
-
-pod #2
-no issues overnight
-R CT output is 75/225 in 12/24 hrs
-no drips
-had an episode of hypotension yesterday after getting BB and Lasix - recovered with 250 LR and 250 Albumin. No further hypotension. Denies any lightheadedness
-weaned off O2 - pOx 91-94% on RA
-Cr is stable - 1.0
-encourage IS (1000 so far)
-encourage OOB, ambulate
Assessment / Plan
-
Assessment:
-S/P Right mini thoracotomy/Radical complex mitral valve repair (36 mm band annuloplasty, closure of cleft between P2 and P3, CV 4 [place]-Kael cords with 2 placed to the anterior leaflet and to place the posterior leaflet at P2 onto the commissure and
P3, commissural plasty at A3 P3)/Patent Foramen Ovale, Atrial Septal Defect - Closed Primarily, by Dr. Lemus/Marcelo, 09/17/25, pod#2
-Myxomatous mitral valve degeneration with severe insufficiency
-LVEF 60-65%, per intraop JAMIE
-Small Left to Right PFO
-Dilated left atrium
-Hypertension
-Class 1 obesity (BMI 30)
-S/P Left heart cath 07/30/25
-Acute postop blood loss/Anemia (stable without transfusion)
-Acute postop atelectasis
-Acute postop hypovolemia with subsequent hypervolemia
-Acute postop fever, likely from atelectasis/pericarditis
-Suspected acute postop pericarditis per EKG
Discussed patient care with: Nursing and Care Team
Subjective
Procedure
-S/P Right mini thoracotomy/Radical complex mitral valve repair (36 mm band annuloplasty, closure of cleft between P2 and P3, CV 4 [place]-Kael cords with 2 placed to the anterior leaflet and to place the posterior leaflet at P2 onto the commissure and
P3, commissural plasty at A3 P3)/Patent Foramen Ovale, Atrial Septal Defect - Closed Primarily, by Dr. Lemus/Marcelo, 09/17/25
-
Date of Service: September 19, 2025
Objective Data
-
Lab Results
09/19/25 03:42
09/19/25 03:42
PT 18.2 Sec (11.4-14.6) H 09/17/25 12:10
INR 1.48 09/17/25 12:10
APTT 28.8 Sec (23.4-35.0) 09/17/25 12:10
Vital Signs
Vital Signs
Temp Pulse Resp BP Pulse Ox
98 F 74 17 115/69 94
09/19/25 07:55 09/19/25 07:55 09/19/25 07:55 09/19/25 07:51 09/19/25 07:55
CT Intake/Output/Weight
09/18/25 09/19/25 09/19/25
18:59 06:59 18:59
Intake Total 1452.9 / 1552.9 100 / 1552.9
Output Total 675 / 1150 475 / 1150
Balance 777.9 / 402.9 -375 / 402.9
SaO2: 94
Physical Exam
-
General: Awake and AOx3
Cardiovascular: Regular rate & rhythm, No Murmurs and No Rub
Respiratory: Decreased Breath Sounds
Sternum: Stable
Incision: Clean, Dry and Dressing Intact
Extremities: Edema +1
Data Reviewed
-
Lab Results: Results Reviewed
Medications: Active Meds Reviewed
Chest X-Ray: Report Reviewed and Image Reviewed
ECG: Report Reviewed and Image Reviewed
--- NOTE | 2025-09-19 08:04 | W.PN.CD ---
Today's Communication / Plan
-
Maintain current volume status.
Routine post operative care.
Incentive spirometry.
Ambulate.
No diuretics today, probably tomorrow.
Impression / Plan
-
Impression/Plan: 70 y/o male with hypertension and nonrheumatic mitral valve regurgitation admitted for elective mitral valve repair.
#Severe, degenerative mitral valve insufficiency
-Chronic, progressive.
-s/p radical complex mitral valve repair(#36 [place] Physio Flex band annuloplasty [SN [id number]], [place]-Kael chords x4, A3/P3 commisuraplasty) with Dr. Lemus, 09/17/2025.
-Pre and post LVEF 60% without new RWMA
-JAMIE without residual mitral valve insufficiency, no KANE, MG 1 mmHg.
-Routine post operative management.
-Incentive spirometry.
-Ambulate.
-Hold diuretics and allow to equilibrate today.
#Post operative pericarditis
-Acute, post operative.
-Chest pain free.
-Continue colchicine 0.6 mg BID x 3 months and NSAID taper.
-Consider changing ketoralac to ibuprofen for outpatient taper as follows:
-800 mg TID x 2 weeks, then
-600 mg TID x 2 weeks, then
-400 mg TID x 2 weeks, then
-200 mg TID x 2 weeks, then
-200 mg BID x 2 weeks, then
-200 mg daily x 2 weeks, then stop.
#Hypertension:
-Chronic, hypotensive yesterday.
-BP stable this morning.
#PFO
-Chronic.
-S/P closure at the time of surgery.
-S/P LAAE at the time of surgery (#35 [place], SN [id number]) with Dr. Lemus, 09/17/2025.
Subjective/Interval History:
Weight up 4.1 kg from kayla, but relatively hypotensive yesterday.
Febrile to 38.2 yesterday.
Metoprolol decreased to 12.5 mg daily.
DATA:
MVr, 09/17/2025:
Procedure(s) Performed:
1. Right mini thoracotomy with right femoral artery and vein cannulation under JAMIE guidance
2. Radical complex mitral valve repair (36 mm band annuloplasty, closure of cleft between P2 and P3, CV 4 [place]-Kael cords with 2 placed to the anterior leaflet and to place the posterior leaflet at P2 onto the commissure and P3, commissural plasty at
A3 P3)
3. Placement temporary ventricular pacing wires
4. Trans esophageal echocardiography
5. Left atrial appendage ligation (35mm clip)
6. Patent Foramen Ovale, Atrial Septal Defect - Closed Primarily
Physical Exam
Vital Signs/Labs
Vital Signs
Temp Pulse Resp BP Pulse Ox
36.6 C 71 17 115/69 94
09/19/25 07:55 09/19/25 08:00 09/19/25 07:55 09/19/25 07:51 09/19/25 08:03
09/17/25 09/18/25 09/19/25
11:59 11:59 11:59
Actual Weight 86.1 kg 89.3 kg 90.2 kg
09/19/25 03:42
09/19/25 03:42
PT 18.2 Sec (11.4-14.6) H 09/17/25 12:10
INR 1.48 09/17/25 12:10
APTT 28.8 Sec (23.4-35.0) 09/17/25 12:10
Magnesium 2.3 mg/dl (1.6-2.3) 09/19/25 03:42
Physical Exam
Constitutional: No acute distress and Comfortable
EENT: Anicteric and Moist mucous membranes
Cardiovascular: Rhythm & rate is regular, JVD pressure is normal, Pedal edema present, S1S2 is normal and Murmur/rub/gallop absent
Respiratory: Respiratory effort normal, Lungs clear to auscul., Wheeze Absent, Crackles Absent and Rhonchi Absent
GI: Soft, Distention absent, Flat, Non tender and Normal bowel sounds
Neuro/Psych: AO x 3
Data Reviewed
-
Date of Service: September 19, 2025
Medical Decision Making: Reviewed Test Results and Independent Historian Assessment
EKG: Tracing Personally Visualized and interpreted and Report Reviewed by me
Echo: Report Reviewed by me
X-Ray/CT/US/MRI/NUC/PET: Image Personally Visualized and interpreted and Report Reviewed by me
Labs: Labs Reviewed by me
Old Records: Reviewed
[2025-09-19] MEDS: LOPRESSOR 12.5 MG PO ×2 (08:07→22:53)
--- NOTE | 2025-09-19 08:15 | PTCARENOTE ---
Patient received from shift lab technician resting oob in chair, AAO X 3, denies pain. NSR via cm, SaO2 @ 94% on RA. RIJ Cordis w/kvo infusing. R pleural chest tube to -20cm suction, no air leak noted. All procedural sites stable. Patient updated to plan of
care for the day, in agreement. See work list for full assessment and interventions performed.
--- NOTE | 2025-09-19 09:50 | PTCARENOTE ---
Chest tube d/c'd as ordered. Patient tolerated well.
--- NOTE | 2025-09-19 12:20 | PTCARENOTE ---
VS obtained, assessment stable. Patient oob in chair, awaiting lunch. Family at bedside.
--- NOTE | 2025-09-19 12:31 | CM ---
Reviewed chart. Met with Mr. Ann to review discharge plans. He states he is feeling well and maybe able to go home soon. We reviewed a home visit by the Transitional Care Nurse. He is agreeable to a home visit. He states his spouse wand
daughter will be home to assist in his care if needed. Prior to admission he resides with his spouse, daughter and son in-law in a two story home with three steps to enter. He has to go up a full flight of steps to get to bedroom/full bathroom. He
does not have any DME in the home. He has a prescription plan and uses [facility]. Medical work-up in progress. The discharge plan is to return home with his spouse, daughter and son-in-law with a home visit by the Transitional Care Nurse when
medically stable.
[2025-09-19] MEDS: NSS 500 IV (13:14)
[2025-09-19] MEDS: FERRLECIT 110 MG IV (13:29)
[2025-09-19] MEDS: LOPRESSOR 5 MG IV (13:29)
[2025-09-19] MEDS: CORDARONE 259 MG IV ×2 (14:24→22:54)
[2025-09-19] MEDS: CORDARONE 103 MG IV (14:24)
[2025-09-19] MEDS: REMOVE LIDOCAINE PATCH 1 PATCH REMOVE (20:17)
[2025-09-19] MEDS: SENOKOT PO (20:17)
--- NOTE | 2025-09-19 20:45 | PTCARENOTE ---
Report from STEPH Gonzalez. Walking rounds done. Pt just had BM and Voided clear, yellow urine in BR. Pt awake, alert, oriented x 4. Equal strength x 4. Speech clear. Pt on room air. Sats 95%. BBS present. Decreased to B bases. Audible heart tones. Pt
in AF with ST elevation on monitor. Pt on colchicine scheduled, for pericarditis. BP 90's-104 systolic while in AF. Amiodarone gtt decreased at 2030 to 0.5 mg/min. Pt converted to SR at 2018, HR 60's. BP 111 systolic. V wire insulated to chest. For
pulse and wound assessments, see flowsheets. Belly soft, nontender. Normoactive bs x 4. Family at bedside. Ongoing plan of care.
--- NOTE | 2025-09-19 23:30 | PTCARENOTE ---
VS done. Pt remains in SR, 60's. SBP 115. Amiodarone gtt at 0.5 mg/min. Discussed po meds with PA. Lopressor 12.5 mg po given at 2253. JUDITH Ford at bedside at 2320. Instructed to given scheduled amiodarone 200 mg po. Pt without c/o pain. Sats 95%
on room air. Ongoing plan of care.
[2025-09-20] VITALS (10 sets, daily range): BP systolic 93–126; BP diastolic 58–67; PULSE 57; O2SAT 96–100; BMI 31.5
--- NOTE | 2025-09-20 00:52 | W.PN.CT ---
Today's Communication / Plan
-
-pod #3
-no issues overnight
-drips : Amio 0.5
-a-fib on 09/19- tx with iv Lopressor, Amio bolus and drip - converted to nsr @ 8:20 pm without conversion pause. Sinus shahnaz low-mid 50s overnight. Continue Lopressor and po Amio
-weaned off O2 - pOx 95% on RA
-current meds (ASA, Amio 200 tid, Colchicine, Lopressor 12.5 bid, Neurontin, Protonix). Difficult to increase BB d/t bradycardia 50s
-Tm 100.2- encourage IS, ambulate
-possible d/c soon
Assessment / Plan
-
Assessment:
-S/P Right mini thoracotomy/Radical complex mitral valve repair (36 mm band annuloplasty, closure of cleft between P2 and P3, CV 4 [place]-Kael cords with 2 placed to the anterior leaflet and to place the posterior leaflet at P2 onto the commissure and
P3, commissural plasty at A3 P3)/Patent Foramen Ovale, Atrial Septal Defect - Closed Primarily, by Dr. Lemus/Marcelo, 09/17/25, pod#3
-Myxomatous mitral valve degeneration with severe insufficiency
-LVEF 60-65%, per intraop JAMIE
-Small Left to Right PFO
-Dilated left atrium
-Hypertension
-Class 1 obesity (BMI 30)
-S/P Left heart cath 07/30/25
-Acute postop blood loss/Anemia (stable without transfusion)
-Acute postop atelectasis
-Acute postop hypovolemia with subsequent hypervolemia
-Acute postop fever, likely from atelectasis/pericarditis- started on Colchicine
-Suspected acute postop pericarditis per EKG
-Acute postop a-fib - converted to nsr @ 8:20 pm 09/19 (no conversion pause)
-Echo 09/19/25:
1. Normal biventricular size and systolic function without regional wall motion abnormality. LVEF 55%.
2. S/p mitral valve repair with normal gradients (peak/mean 9/3 at HR 69 bpm) and no residual MR.
3. No pericardial effusion.
4. Compared to intraoperative JAMIE on 09/17/2025, prior mitral valve gradients were peak/mean 6/1 mmHg at 58 bpm.
Discussed patient care with: Nursing and Care Team
Subjective
Procedure
-S/P Right mini thoracotomy/Radical complex mitral valve repair (36 mm band annuloplasty, closure of cleft between P2 and P3, CV 4 [place]-Kael cords with 2 placed to the anterior leaflet and to place the posterior leaflet at P2 onto the commissure and
P3, commissural plasty at A3 P3)/Patent Foramen Ovale, Atrial Septal Defect - Closed Primarily, by Dr. Lemus/Marcelo, 09/17/25
-
Date of Service: September 20, 2025
Objective Data
-
PT 18.2 Sec (11.4-14.6) H 09/17/25 12:10
INR 1.48 09/17/25 12:10
APTT 28.8 Sec (23.4-35.0) 09/17/25 12:10
Vital Signs
Vital Signs
Temp Pulse Resp BP Pulse Ox
100.2 F 58 16 115/61 95
09/19/25 22:51 09/20/25 00:00 09/19/25 22:51 09/19/25 23:25 09/19/25 19:53
CT Intake/Output/Weight
09/19/25 09/19/25 09/20/25
06:59 18:59 06:59
Intake Total 100 / 1552.9 906.6 / 1083.4 176.8 / 1083.4
Output Total 475 / 1150 300 / 300
Balance -375 / 402.9 606.6 / 783.4 176.8 / 783.4
SaO2: 95
Physical Exam
-
General: Awake and AOx3
Cardiovascular: Regular rate & rhythm, No Murmurs and Rub
Respiratory: Decreased Breath Sounds
Sternum: Stable
Incision: Clean, Dry and Intact
Extremities: Edema +1
Abdomen: soft, nontender, mildly distended, + BM, + bowel sounds
Data Reviewed
-
Lab Results: Results Reviewed
Medications: Active Meds Reviewed
Chest X-Ray: Report Reviewed and Image Reviewed
ECG: Report Reviewed and Image Reviewed
--- NOTE | 2025-09-20 02:20 | PTCARENOTE ---
Pt sleeping. Amio gtt at 0.5 mg/min. Pt is SB, 50's (52-56 bpm). BP while asleep is 93/58. PA made aware. No orders given.
--- NOTE | 2025-09-20 04:27 | PTCARENOTE ---
Labs drawn and sent. VS done. Pt without c/o pain. Amio gtt infusing at 0.5 mg/min. PT remains in SB, rate 54-56 bpm. BP 99/67. O2 sats 94%
[2025-09-20 04:49] LABS: Hematocrit 29.0 % (39.0-52.0); Hemoglobin 9.8 g/dL (13.0-18.0); Mean Corp Hgb Conc. 33.8 g/dL (33.0-37.0); Mean Corpuscular Volume 90.9 fL (80.0-94.0); Platelet Count 141 10^3/uL (130-400); Red Cell Dist. Width 13.7 % (11.5-14.5)
[2025-09-20 05:05] LABS: Blood Urea Nitrogen 25 mg/dl (9-20); Calcium 8.3 mg/dl (8.4-10.2); Carbon Dioxide 27 mmol/L (22-30); Chloride 106 mmol/L (98-107); Estimated Creatinine Clearance 75 ml/min; Glucose 131 mg/dl (70-99); Magnesium 2.3 mg/dl (1.6-2.3); Potassium 3.9 mmol/L (3.5-5.1); Sodium 133 mmol/L (135-145); eGFR > 60.00
[2025-09-20] MEDS: TYLENOL 975 MG PO ×2 (06:20→13:38)
--- NOTE | 2025-09-20 06:25 | PTCARENOTE ---
CXR done this am. Pt VS done. Helped to BR to void clear, yellow urine. Helped to chair. Remains in SB-SR. Amio gtt at 0.5 mg/min.
--- NOTE | 2025-09-20 07:39 | W.PN.CD ---
Today's Communication / Plan
-
Cont colchicine
consider ibuprofen taper
monitor tele
Impression / Plan
-
Impression/Plan: 70 y/o male with hypertension and nonrheumatic mitral valve regurgitation admitted for elective mitral valve repair.
#Severe, degenerative mitral valve insufficiency
-Chronic, progressive.
-s/p radical complex mitral valve repair(#36 [place] [employer] Flex band annuloplasty [SN [id number]], [place]-Kael chords x4, A3/P3 commisuraplasty) with Dr. Lemus, 09/17/2025.
-Pre and post LVEF 60% without new RWMA
-JAMIE without residual mitral valve insufficiency, no KANE, MG 1 mmHg.
-Routine post operative management.
-Incentive spirometry.
-Ambulate.
-Hold diuretics and allow to equilibrate today.
#Post operative pericarditis
-Acute, post operative.
-Chest pain free.
-Continue colchicine 0.6 mg BID x 3 months and NSAID taper.
-Consider changing ketoralac to ibuprofen for outpatient taper as follows:
-800 mg TID x 2 weeks, then
-600 mg TID x 2 weeks, then
-400 mg TID x 2 weeks, then
-200 mg TID x 2 weeks, then
-200 mg BID x 2 weeks, then
-200 mg daily x 2 weeks, then stop.
#paroxysmal AF
- if recurs would need to consider AC
#Hypertension:
-Chronic, hypotensive yesterday.
-BP stable this morning.
#PFO
-Chronic.
-S/P closure at the time of surgery.
-S/P LAAE at the time of surgery (#35 [place], SN [id number]) with Dr. Lemus, 09/17/2025.
Subjective/Interval History:
Feels good wondering when he will be d/c
DATA:
MVr, 09/17/2025:
Procedure(s) Performed:
1. Right mini thoracotomy with right femoral artery and vein cannulation under JAMIE guidance
2. Radical complex mitral valve repair (36 mm band annuloplasty, closure of cleft between P2 and P3, CV 4 [place]-Kael cords with 2 placed to the anterior leaflet and to place the posterior leaflet at P2 onto the commissure and P3, commissural plasty at
A3 P3)
3. Placement temporary ventricular pacing wires
4. Trans esophageal echocardiography
5. Left atrial appendage ligation (35mm clip)
6. Patent Foramen Ovale, Atrial Septal Defect - Closed Primarily
Physical Exam
Vital Signs/Labs
Vital Signs
Temp Pulse Resp BP Pulse Ox
98.7 F 58 16 111/63 94
09/20/25 04:05 09/20/25 06:04 09/20/25 04:05 09/20/25 06:04 09/20/25 04:05
09/19/25 09/20/25 09/21/25
06:59 06:59 06:59
Actual Weight 198 lb 13.711 oz 200 lb 13.458 oz
09/20/25 04:21
09/20/25 04:21
PT 18.2 Sec (11.4-14.6) H 09/17/25 12:10
INR 1.48 09/17/25 12:10
APTT 28.8 Sec (23.4-35.0) 09/17/25 12:10
Magnesium 2.3 mg/dl (1.6-2.3) 09/20/25 04:21
Physical Exam
Constitutional: No acute distress and Comfortable
EENT: Anicteric
Cardiovascular: Rhythm & rate is regular
Respiratory: Respiratory effort normal and Lungs clear to auscul.
GI: Soft
Neuro/Psych: AO x 3
Data Reviewed
-
Date of Service: September 20, 2025
Medical Decision Making: Reviewed Test Results
EKG: Tracing Personally Visualized and interpreted (sr)
Labs: Labs Reviewed by me
--- NOTE | 2025-09-20 08:00 | PTCARENOTE ---
pt received from previous RN, oriented, OOB in chair. SB/SR on the monitor, HR 50-60s. V wire insulated. SBP 100s, denies lightheadedness or dizziness. trace hand and LE edema. palpable pulses. pt on RA, 94% POX. diminished in bases. IS encouraged.
pt abdomen s/n, denies n/v. +BS. diet tolerated well. voids. surgical incisions intact. chest tube site c/d/i. RIJ cordis maintained. PIV. see worklist for VS, I&O, and assessment.
[2025-09-20] MEDS: MAGNESIUM OXIDE 400 MG PO (08:25)
[2025-09-20] MEDS: LOW STRENGTH ASPIRIN 81 MG PO (08:25)
[2025-09-20] MEDS: NEURONTIN 100 MG PO (08:25)
[2025-09-20] MEDS: SENOKOT 8.6 MG PO (08:25)
[2025-09-20] MEDS: COLCHICINE 0.3 MG PO (08:26)
[2025-09-20] MEDS: BACTROBAN 2% OINTMENT 1 APPLIC NASAL (08:26)
[2025-09-20] MEDS: PROTONIX 40 MG PO (08:26)
[2025-09-20] MEDS: PACERONE 200 MG PO (08:26)
[2025-09-20] MEDS: TOPROL XL 25 MG PO (08:26)
[2025-09-20] MEDS: KCL 40 MEQ PO (09:46)
--- NOTE | 2025-09-20 11:22 | CM ---
Addendum entered by Filomena Ardon 09/20/25 14:19:
Received consuly to check co-pay for Eliquis 5 mg po bid. Telephone call to his insurance to check on co-pay. Hid co-pay would be $4.80 a month. Placed the one month free coupon in his red discharge folder. Met with Mr. Ann to review
co-pay. He is agreeable to the co-pay.
Original Note:
Reviewed chart. Met with Mr. Ann to review discharge plans. He states he is feeling well and maybe able to go home soon. We reviewed a home visit by the Transitional Care Nurse. He is agreeable to a home visit. His spouse wand daughter will
be home to assist in his care if needed. Prior to admission he resides with his spouse, daughter and son in-law in a two story home with three steps to enter. He has to go up a full flight of steps to get to bedroom/full bathroom. He does not have
any DME in the home. He has a prescription plan and uses [facility]. Medical work-up in progress. The discharge plan is to return home with his spouse, daughter and son-in-law with a home visit by the Transitional Care Nurse when medically
stable.
[2025-09-20] MEDS: NSS IV (12:05)
[2025-09-20] MEDS: LASIX 40 MG PO (12:13)
--- NOTE | 2025-09-20 12:34 | PTCARENOTE ---
pt VSS, no changes in assessment. pt ambulated entire loop w/ stand by assist, tolerated well. pt voids in bathroom, +BM per pt. no c/o pain.
--- NOTE | 2025-09-20 13:37 | W.DCSUMMARY ---
Discharge Summary
Discharge Data
Date of Admission: 09/17/25
Date of Discharge: 09/20/25
Total time spent discharging patient (in min): 45
-
Pending Results: No
Hospital Course
Primary care physician:
Dr. Doyle
Outpatient executive producer promos:
Dr. Harris
Inpatient consultants:
[facility], traffic operations engineer
Procedures:
1. Radical complex mitral valve repair (36 mm band annuloplasty, closure of cleft between P2 and P3, CV 4 [place]-Kael cords with 2 placed to the anterior leaflet and to place the posterior leaflet at P2 onto the commissure and P3, commissural plasty
at A3 P3)
Primary Diagnosis:
1. 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
Secondary Diagnoses:
1. Hypertension
2. Post op atrial fibrillation
HPI: 70-year-old male was referred for consideration of mitral valve repair. He has worsening/progression of his mitral valve insufficiency on serial echocardiograms.
Hospital course:
70-year-old male presented electively on 09/17 for a mitral valve repair with Dr. Lemus. Postoperatively he was extubated in the OR and was transferred to CVICU for the remainder of his recovery. Patient was noted to have pericarditis on EKG and
was started on Toradol and colchicine. Patient was also on Levophed and was given 750 mL of lactated Ringer's. Postoperative day 1 patient was started on beta-blockers and Lasix however by mid afternoon became acutely hypotensive. Although
asymptomatic patient was started on Levophed and was given 500 mL of fluid. After IV fluids patient was quickly weaned off Levophed. On 09/19 postoperative day 2 patient resumed on beta-blockers and chest tube was removed. Patient went into
atrial fibrillation with rapid ventricular response and was given IV Lopressor with amiodarone bolus and drip. Echocardiogram was performed. On 09/20 postoperative day 3 patient converted to sinus rhythm overnight and was started on Eliquis for
anticoagulation. He was also started on oral Lasix and will be discharged home with a 5-day course. Patient's epicardial wire was cut at the skin and Cordis catheter was removed.
Home medication changes:
see below
Discharge Plan
-
Patient Disposition: Home (Routine Discharge)
Discharge Diagnosis/Procedures: MVrepair
Condition: Good
Diet: 2 Gram Sodium and Restrict fluids to 64 oz
Activity: No strenuous activity
Driving Restrictions: Not until seen by your Dr
Bathing Restrictions: OK to Shower
Blood Work: BMP in 5 days
Other Services: Cardiac Rehab
Specialty Instructions: Weigh Daily- Call MD for wt gain/loss 3 lbs overnight/5 lbs in 1 week
Activity Restrictions/Additional Instructions:
ACTIVITY:
-No strenuous activity: no heavy lifting, pushing, pulling anything over 15 pounds for one month
-continue to use stairs as tolerated
DRIVING RESTRICTIONS:
-No driving for one month or until approved by your surgeon
WOUND CARE:
-Shower daily. Use soap & water.
-No lotions, creams or powders on incision area.
DIET:
-continue a low fat/low cholesterol diet.
-IF you are diabetic, continue carb controlled diet.
CARDIAC REHAB:
-Please make appointment to start in 5-6 weeks with your local hospital program. (See Cardiac Rehabilitation Discharge Booklet).
SPECIALTY INSTRUCTIONS:
-Weigh yourself daily. Call your physician for any weight gain/loss of 3 lbs overnight or 5 lbs in one week.
-REPORT any clicking noise or uneven appearance of your sternum to your surgeon immediately.
-If you smoke, you are instructed to quit. The [place] smoking hotline phone number is [phone]
Referrals:
CT Transitional Care Nurse [Outside] - in one to two days
Referral Note:
The Cardiothoracic Transitional Care Nurse will call you to set up a visit in 1-2 days.
[facility] [Outside] - 10/18/25 9:30 am
Referral Note: Cardiac Rehab Orientation appointment and� First Exercise appointment is on Tuesday10/18/25 at 9:30 am.
The Cardiac Rehab gym is located on the first floor of the [facility].
Herb Doyle MD [Family Provider, Internal Medicine] - in four to six weeks
Referral Note: Please make an appointment in four to six weeks.
Bernabe Harris MD [Non-Admitting Privileges] - 10/29/25 10:40 am
Referral Note: [id number] [facility] [id number]
[place]. [id number]
Eze Lemus MD [Active, Cardiac Surgery] - 10/14/25 2:15 pm
Additional Discharge Medication Instructions: please take amiodarone 200mg twice a day for two weeks then 200mg daily
you will be on lasix for 5 days. please weigh yourself everyday and monitor for any swelling
Prescriptions:
New
amiodarone [Pacerone] 200 mg Tablet
200 mg PO BID Qty: 90 0RF
Rx Instructions:
please take 200mg twice a day for 2 weeks and then 200mg daily
acetaminophen 325 mg Tablet
650 mg PO Q4HPRN PRN (Reason: mild pain,headache,temp >101F ) Qty: 0 0RF
metoprolol succinate 25 mg Tablet Extended Release 24 Hr
25 mg PO DAILY Qty: 60 0RF
colchicine 0.6 mg Tablet
0.3 mg PO DAILY 30 Days Qty: 30 0RF
pantoprazole 40 mg Tablet,Delayed Release (Dr/Ec)
40 mg PO DAILY Qty: 30 0RF
oxycodone 5 mg Tablet
2.5 mg PO Q4HPRN PRN (Reason: moderate to severe pain) Qty: 10 0RF
furosemide [Lasix] 40 mg tablet
40 mg PO DAILY Qty: 5 0RF
potassium chloride [Klor-Con 10] 10 mEq tablet extended release
10 meq PO DAILY Qty: 5 0RF
Eliquis 5 mg Tablet
5 mg PO BID Qty: 60 0RF
Discontinued
amlodipine 5 mg Tablet
5 mg PO DAILY
Discharge Orders:
Discharge Patient (As Directed); Ordered 09/20/25
Ordered By: Donna Sosa
Care Plan Goals
Care Plan Goals:
Problem: Readiness for enhanced knowledge related to diagnosis and treatment plan
Goal: Understand your diagnosis and treatment plan needs, including medications if applicable.
Instructions: Know your diagnosis, underlying causes and treatment plan options, including medications if applicable. Consult with your health care team to learn about your diagnosis and treatment plan, including medications if applicable.
Discharge Date and Time
Print Language: ARMENIAN
[2025-09-20] MEDS: ELIQUIS 5 MG PO (13:38)
--- NOTE | 2025-09-20 14:00 | PTCARENOTE ---
pt placed back to bed, V wire cut by CRYSTAL Rai. FRED lema dc'd as ordered, dressing c/d/i.
--- NOTE | 2025-09-20 15:45 | PTCARENOTE ---
pt ambulating in hallway independently, stairs completed w/ CR. pt discharged home w/ daughter, discharge instructions reviewed w/ daughter and patient, questions answered. home meds reviewed. IV and tele dc'd. pt showered independently, dressed
self. pt left floor w/ belongings via wheelchair w/ volunteer.
== END 2025-09-20 15:30 | disposition home or self-care (01) | DRG 219 ==
LOC: CVICU 04:53
PROVIDERS: Anesthesiology; Clinical Nurse Specialist Acute Care; ADMITTING PHYSICIAN Thoracic Surgery (Cardiothoracic Vascular Surgery); CONSULT PHYSICIAN Internal Medicine Cardiovascular Disease; CONSULT PHYSICIAN Internal Medicine Critical Care Medicine; FAMILY PHYSICIAN Internal Medicine
PROC: 02Q50ZZ Repair Atrial Septum, Open Approach (ICD-10-PCS; 2025-09-17)
PROC: 02UG08Z Supplement Mitral Valve with Zooplastic Tissue, Open Approach (ICD-10-PCS; 2025-09-17)
PROC: B24BZZ4 Ultrasonography of Heart with Aorta, Transesophageal (ICD-10-PCS; 2025-09-17)
PROC: 5A1221Z Performance of Cardiac Output, Continuous (ICD-10-PCS; 2025-09-17)
PROC: 02L70CK Occlusion of Left Atrial Appendage with Extraluminal Device, Open Approach (ICD-10-PCS; 2025-09-17)
DX: I34.0 Nonrheumatic mitral (valve) insufficiency (principal); I51.1 Rupture of chordae tendineae, not elsewhere classified; Q21.12 Patent foramen ovale; I30.8 Other forms of acute pericarditis; D62 Acute posthemorrhagic anemia; J98.11 Atelectasis; I95.9 Hypotension, unspecified; I48.0 Paroxysmal atrial fibrillation; E86.1 Hypovolemia; E87.70 Fluid overload, unspecified; R50.82 Postprocedural fever; I10 Essential (primary) hypertension; I34.1 Nonrheumatic mitral (valve) prolapse; I25.10 Atherosclerotic heart disease of native coronary artery without angina pectoris; E66.811 Obesity, class 1; Z68.31 Body mass index [BMI] 31.0-31.9, adult
CPT/HCPCS: 36415; 71045; 80048; 80053; 81003; 81015; 82248; 82330; 82565; 82805; 82810; 82947; 82962; 83036; 83735; 84132; 84302; 84520; 85014; 85018; 85025; 85027; 85049; 85610; 85730; 86850; 86900; 86901; 86920; 87070; 93005; 93308; 93312; 93320; 93321; 93325; 93880; 94660; J0282; J2916; P9045

== ENCOUNTER 2025-10-25 09:53 | Outpatient (RCR) | payer OTHER, SELFPAY | END 2025-10-25 23:59 | disposition home or self-care (01) | LOC: CRHB 09:53 | PROVIDERS: ATTENDING PHYSICIAN Internal Medicine Cardiovascular Disease | DX: Z95.2 Presence of prosthetic heart valve (principal); Z98.890 Other specified postprocedural states | CPT/HCPCS: 93797; 93798; G0422; G0423 ==